=== PATIENT | male | born 1985 | race Hispanic/Latino ===

== ENCOUNTER 2017-06-28 09:01 | Day surgery (SDC) | payer OTHER ==
[2017-06-28] MEDS ORDERED: Lactated Ringer's 500 ML IV ONE ×2 (10:04)
[2017-06-28] MEDS ORDERED: Propofol 10 mg/ml Inj (20 ML) ONE ×2 (10:08→10:27)
--- NOTE | 2017-06-28 10:09 | CP.SDSHP ---
Same Day Surgery H & P - History Proposed Procedure: colonoscopy Pre-Op Diagnosis: diverticulitis - Allergies Allergies: Allergies No Known Allergies Allergy (Verified 06/27/17 10:54) - Physical Exam General Appearance: NAD Vital Signs: Vital Signs 06/28/17 09:33 Temperature 99.1 F Pulse Rate 86 Respiratory 20 Rate Blood Pressure 126/67 O2 Sat by Pulse 97 Oximetry Mental Status: Alert & Oriented x3 Neuro: WNL Heart: WNL Lungs: WNL GI: WNL - {Optional Preform as Required} Abdomen: WNL - Impression Pt. Evaluated Today:Candidate for Anesthesia & Procedure: Yes - Date & Time Date: 06/28/17 Time: 10:08 Short Stay Discharge - Short Stay Discharge Admitting Diagnosis/Reason for Visit: DIVERTICULITIS Disposition: HOME/ ROUTINE
[2017-06-28 12:39] VITALS: BP 112/77; PULSE 66; RESP 14; TEMP 98; O2SAT 99
== END 2017-06-28 12:05 | disposition home or self-care (01) ==
LOC: C.ENDO 09:01
PROVIDERS: ATTEND Internal Medicine Gastroenterology
DX: K57.92 Diverticulitis of intestine, part unspecified, without perforation or abscess without bleeding (principal); K63.5 Polyp of colon